=== PATIENT | female | born 1985 | race Caucasian/White ===

== ENCOUNTER 2023-07-21 10:04 | Emergency (ER) | payer OTHER ==
[~2023-07-21] VITALS: Ht 175.3 cm; Wt 75.0 kg
[2023-07-21 10:11] VITALS: BP 126/85; PULSE 89; RESP 18; TEMP 98.7; O2SAT 100
[2023-07-21] MEDS ORDERED: IBUP-2029 MT (11:07)
[2023-07-21] MEDS ORDERED: MUPI15CR11 TP (11:07)
[2023-07-21] MEDS ORDERED: CLIN-194 MT (11:07)
[2023-07-21] MEDS ORDERED: DOXY100C5 MT (11:07)
== END 2023-07-21 11:32 | disposition home or self-care (01) ==
LOC: ER 10:04
DX: L53.9 Erythematous condition, unspecified (principal); Z88.0 Allergy status to penicillin; Z98.890 Other specified postprocedural states; Z86.39 Personal history of other endocrine, nutritional and metabolic disease
CPT/HCPCS: 81025; 99282; 99283